=== PATIENT | female | born 2000 | race Caucasian/White ===

== ENCOUNTER 2023-03-07 09:47 | Observation (INO) ==
[2023-03-07] MEDS ORDERED: IBUPROFEN 600 MG TAB PO STA (10:46)
[2023-03-07] MEDS ORDERED: ACETAMINOPHEN 500 MG TAB PO STA (10:46)
--- NOTE | 2023-03-07 10:46 | Emergency Department Note ---
History of Present Illness General Chief complaint: Illness Stated complaint: FEVER, HEADACHE, FATIGUE, HIVES, ABD PAIN Time Seen by Provider: 03/07/23 10:06 History of Present Illness Maximum Pain Intensity: 3 NAME: CONNOR HILL AGE: 22 SEX: F : 2000 ARRIVES VIA: Walk-In INFORMANT: Patient ED PROVIDER(S): NEDRA Gordillo, Glen Stockton, The patient is a 22-year-old female with a past medical history of left melanoma treated with radiation therapy, who arrives to the emergency department for evaluation of viral symptoms including fever, body aches, diffuse rash since Sunday. She reports she was seen at [facility] and had a flu test and urine test which were both negative, she took an at-home COVID test which she reports was negative. She states last night her fever was as high as 102.5, she has taken Tylenol and Motrin which has helped slightly. She denies a sore throat, however she reports nausea with no vomiting, pain in her lower abdomen, dark urine and slight burning with urination. She recently was diagnosed with a sinus infection and provided amoxicillin which she developed a yeast infection from, and then had to take a round of Diflucan. The patient denies any shortness of breath, chest pain at this time. Home Medications Medication Instructions Recorded Confirmed Type Clara See Rx Instructions .Route .COMPLEX 03/07/23 03/07/23 History albuterol sulfate 90 mcg/actuation 2 puff inhalation Q4H PRN Cough 03/07/23 03/07/23 History aerosol inhaler bromfenac 0.07 % eye drops 1 drp ophthalmic (eye) DAILY 03/07/23 03/07/23 History (Prolensa) norethindrone 1 mg-ethinyl 1 tab PO DAILY 03/07/23 03/07/23 History estradiol 20 mcg (21)-iron 75 mg (7) tablet (Diane Fe 03/10 ()) ondansetron 4 mg disintegrating 4 mg PO UD PRN Other 03/07/23 03/07/23 History tablet Allergies Allergy/AdvReac Type Severity Reaction Status Date / Time No Known Allergies Allergy Unverified 03/07/23 13:22 Past Med/Surg History Medical History (Updated 03/07/23 @ 20:44 by NEDRA Cisneros) Febrile illness 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 Surgical History (Updated 03/07/23 @ 17:15 by Gabe Vo MD) History of left cataract surgery Social History Smoking Status: Never smoker Feels Safe at Home: Yes Physical Exam Vital Signs Vital Signs - 24 hr 03/07/23 10:04 03/07/23 11:49 03/07/23 13:00 Temperature 36.4 C L 36.4 C L 36.8 C Temperature Source Temporal Artery Scan Oral Oral Pulse Rate 122 H Pulse Rate [Right Finger] 88 88 Pulse Rhythm [Right Finger] Regular Regular Pulse Strength [Right Finger] Normal Normal Respiratory Rate 19 19 19 Respiratory Effort / Characteristics Non-Labored Spontaneous Non-Labored Spontaneous Non-Labored Spontaneous Respiratory Depth Normal Normal Normal Respiratory Pattern Blood Pressure 107/74 Blood Pressure [Right Arm] 124/75 115/85 Blood Pressure Mean 85 Blood Pressure Mean [Right Arm] 91 95 Blood Pressure Position [Right Arm] Semi-fowlers Semi-fowlers Pulse Oximetry 100 100 100 Oxygen Delivery Method Room Air Room Air Room Air Sepsis Recent Fever Within 48 Hours Yes Sepsis New/Unexplained Change in Mental Status No Sepsis Action Taken by Nursing No Action Required 03/07/23 15:24 03/07/23 17:13 Temperature Temperature Source Pulse Rate Pulse Rate [Right Finger] 104 H 104 H Pulse Rhythm [Right Finger] Pulse Strength [Right Finger] Respiratory Rate 16 18 Respiratory Effort / Characteristics Non-Labored Spontaneous Respiratory Depth Normal Respiratory Pattern Regular Blood Pressure Blood Pressure [Right Arm] 105/85 93/76 L Blood Pressure Mean Blood Pressure Mean [Right Arm] 91 81 Blood Pressure Position [Right Arm] Semi-fowlers Semi-fowlers Pulse Oximetry 98 98 Oxygen Delivery Method Room Air Room Air Sepsis Recent Fever Within 48 Hours Sepsis New/Unexplained Change in Mental Status Sepsis Action Taken by Nursing VITALS: Vitals are noted on the nurse's note and reviewed by myself. Vital signs stable. GENERAL: 22-year-old female in no acute distress, nondiaphoretic, well-developed well-nourished. SKIN: Diffuse maculopapular rash covering the trunk, orthopedic surgeon in appearance on extremities, with some extending to neck and around hairline. HEAD: Normocephalic atraumatic. EARS: External auditory canals clear, tympanic membranes pearly strange without erythema or effusion bilaterally. MOUTH: Mucous membranes moist. Tonsils are not enlarged. Pharynx without erythema or exudate. Uvula midline. Airway patent. Tongue does not deviate. NECK: Supple without nuchal rigidity. Slight left cervical lymphadenopathy. No thyromegaly. Cervical spine is nontender. No JVD. HEART: Sinus tachycardia without murmurs gallops or rubs. LUNGS: Clear to auscultation bilaterally without wheezes, rales or rhonchi. No dullness to percussion. No retractions or accessory muscle use. ABDOMEN: Positive bowel sounds x 4. Normal tympanic percussion. Soft, nontender, without masses or organomegaly. Eddy sign negative. No guarding or rebound tenderness. MUSCULOSKELETAL: No muscle atrophy, erythema, or edema noted. Full range of motion without joint tenderness in all extremities. No tenderness to palpation. Normal gait. Strength 5/5 throughout. NEURO: Patient was alert and oriented to person place and time. Normal sensation to light and sharp touch. Deep tendon reflexes 2+ throughout. No focal neurological deficits. Course Administered Medications Diphenhydramine HCl (Diphenhydramine Capsule 25 Mg Cap) 25 mg PO Q6H PRN PRN Reason: Itching Stop: 04/06/23 19:33 Last Admin: 03/07/23 19:38 Dose: 25 mg Documented By: TRAN Discontinued Medications Acetaminophen (Acetaminophen 500 Mg Tab) 1,000 mg PO NOW STA Stop: 03/07/23 10:47 Last Admin: 03/07/23 11:23 Dose: 1,000 mg Documented By: JENNIFER Sodium Chloride (Nss) 1,000 mls @ 999 mls/hr IV .Q1H1M VIOLA Stop: 03/07/23 13:00 Last Infusion: 03/07/23 13:28 Dose: Infused Documented By: Admin: 03/07/23 12:27 Dose: 999 mls/hr Documented By: Infusion: 03/07/23 12:24 Dose: Infused Documented By: Admin: 03/07/23 11:23 Dose: 999 mls/hr Documented By: JENNIFER Sodium Chloride (Nss) 1,000 mls @ 999 mls/hr IV .Q1H1M ONE Stop: 03/07/23 16:43 Last Infusion: 03/07/23 17:08 Dose: Infused Documented By: Admin: 03/07/23 15:58 Dose: 999 mls/hr Documented By: TRAN Lactated Ringer's (Lr) 500 mls @ 999 mls/hr IV .Q31M ONE Stop: 03/07/23 17:54 Last Infusion: 03/07/23 18:22 Dose: Infused Documented By: Admin: 03/07/23 17:50 Dose: 999 mls/hr Documented By: TRAN Ibuprofen (Ibuprofen 600 Mg Tab) 600 mg PO NOW STA Stop: 03/07/23 10:47 Last Admin: 03/07/23 11:23 Dose: 600 mg Documented By: JENNIFER Medical Decision Making Differential Diagnosis Viral syndrome, strep pharyngitis, tonsillitis, mononucleosis, retropharyngeal abscess, peritonsillar abscess, otitis media, sinusitis, bronchitis, pneumonia, as well as other pathologies. Medical Records Attestation: I reviewed the patient's medical records. Home Medications Current Medication List: was personally reviewed by me Laboratory Data Attestation: I reviewed the patient's lab results. Leukopenia 3.84, thrombocytopenia 77, transaminitis AST 94, ALT 89, alk phos 143, total bili 1.5. Viral panel negative. Urine 3+ ketones, negative for infection. Monospot negative, Lyme's negative, anaplasmosis and babesiosis smear negative. Group A strep negative. 03/07/23 11:19 03/07/23 11:19 Lab Results 03/07/23 03/07/23 03/07/23 Range/Units 10:11 11:02 11:19 WBC 3.84 L (4.8-10.8) K/ul RBC 4.50 (4.20-5.40) M/uL Hgb 13.9 (12.0-16.0) g/dl Hct 39.1 (37.0-47.0) % MCV 86.9 (80.0-100.0) fL MCH 30.9 (25.0-34.0) pg MCHC 35.5 (32.0-36.0) g/dL RDW Std Deviation 38.1 (36.4-46.3) fL RDW Coeff of Mirella 11.9 (11.5-14.5) % Plt Count 77 L (130-400) K/uL MPV 12.3 (9.4-12.4) fL Immature Gran % (Auto) 0.3 % Neut % (Auto) 71.9 % Lymph % (Auto) 22.1 % [place] % (Auto) 4.9 % Eos % (Auto) 0.3 % Baso % (Auto) 0.5 % Neut # (Auto) 2.76 (1.40-6.50) K/uL Lymph # (Auto) 0.85 L (1.20-3.40) K/uL [place] # (Auto) 0.19 (0.11-0.59) K/uL Eos # (Auto) 0.01 (0.00-0.50) K/uL Baso # (Auto) 0.02 (0.00-0.20) K/uL Immature Gran # (Auto) 0.01 (0.01-0.20) K/uL Platelet Estimate Decreased L (Normal) Sodium 133 L (136-145) mmol/L Potassium 3.9 (3.5-5.1) mmol/L Chloride 98 (98-107) mmol/L Carbon Dioxide 25 (21-32) mmol/L Anion Gap 10 (3-11) BUN 7 (6-23) mg/dl Creatinine 0.73 (0.6-1.2) mg/dl Est Cr Clr Drug Dosing 112.0 ml/min Est GFR ( Amer) 135.5 ml/min Est GFR (Non-Af Amer) 116.9 ml/min BUN/Creatinine Ratio 9.6 L (10-20) Glucose 63 L (70-99(Fasting)) mg/dl Calcium 9.2 (8.6-10.3) mg/dl Total Bilirubin 1.5 H (0.2-1.0) mg/dl AST 94 H (13-39) U/L ALT 89 H (7-52) U/L Alkaline Phosphatase 143 H (34-104) U/L Total Protein 7.4 (6.0-8.3) gm/dl Albumin 4.2 (3.4-5.0) gm/dl Globulin 3.2 (2.5-4.0) gm/dl Albumin/Globulin Ratio 1.3 (0.9-2) Urine Color Urine Appearance (Clear) Urine pH (4.5-7.5) Ur Specific [place] (1.000-1.030) Urine Protein (Negative) Urine Glucose (UA) (Negative) Urine Ketones (Negative) Urine Blood (Negative) Urine Nitrite (Negative) Urine Bilirubin (Negative) Urine Urobilinogen (Negative) Ur Leukocyte Esterase (Negative) Nasal Influ A H1 2008 PCR Cancelled Adenovirus (PCR) Not Detected Cancelled (NotDetected) Anaplasma Smear See Comment Babesia Smear See Comment B. pertussis DNA (PCR) Not Detected Cancelled (NotDetected) B.parapertussis DNA PCR Not Detected Cancelled (NotDetected) Lyme Disease IgG Ab Lyme Disease IgM Ab C. pneumoniae DNA (PCR) Not Detected Cancelled (NotDetected) Coronavirus OC43 (PCR) Not Detected Cancelled (NotDetected) Coronavirus HKU1 (PCR) Not Detected Cancelled (NotDetected) Coronavirus 229E (PCR) Not Detected Cancelled (NotDetected) SARS-CoV-2 (PCR) Not Detected Cancelled (NotDetected) Coronavirus NL63 (PCR) Not Detected Cancelled (NotDetected) Monoscreen Human Metapneumovir PCR Not Detected Cancelled (NotDetected) Influenza A (H1) PCR Cancelled Influenza A (H3) PCR Cancelled Influenza Type A (PCR) Not Detected Cancelled (NotDetected) Influenza A Untype (PCR) Cancelled Influenza Type B (PCR) Not Detected Cancelled (NotDetected) M. pneumoniae (PCR) Not Detected Cancelled (NotDetected) Parainfluenza 1 (PCR) Not Detected Cancelled (NotDetected) Parainfluenza 2 (PCR) Not Detected Cancelled (NotDetected) Parainfluenza 3 (PCR) Not Detected Cancelled (NotDetected) Parainfluenza 4 (PCR) Not Detected Cancelled (NotDetected) RSV (PCR) Not Detected Cancelled (NotDetected) Entero/Rhino (PCR) Not Detected Cancelled (NotDetected) Group A Strep (PCR) NOT DETECTED (NotDetected) 01/17/24 01/17/24 01/17/24 Range/Units 11:41 13:49 14:40 WBC (4.8-10.8) K/ul RBC (4.20-5.40) M/uL Hgb (12.0-16.0) g/dl Hct (37.0-47.0) % MCV (80.0-100.0) fL MCH (25.0-34.0) pg MCHC (32.0-36.0) g/dL RDW Std Deviation (36.4-46.3) fL RDW Coeff of Mirella (11.5-14.5) % Plt Count (130-400) K/uL MPV (9.4-12.4) fL Immature Gran % (Auto) % Neut % (Auto) % Lymph % (Auto) % [place] % (Auto) % Eos % (Auto) % Baso % (Auto) % Neut # (Auto) (1.40-6.50) K/uL Lymph # (Auto) (1.20-3.40) K/uL [place] # (Auto) (0.11-0.59) K/uL Eos # (Auto) (0.00-0.50) K/uL Baso # (Auto) (0.00-0.20) K/uL Immature Gran # (Auto) (0.01-0.20) K/uL Platelet Estimate (Normal) Sodium (136-145) mmol/L Potassium (3.5-5.1) mmol/L Chloride (98-107) mmol/L Carbon Dioxide (21-32) mmol/L Anion Gap (3-11) BUN (6-23) mg/dl Creatinine (0.6-1.2) mg/dl Est Cr Clr Drug Dosing ml/min Est GFR ( Amer) ml/min Est GFR (Non-Af Amer) ml/min BUN/Creatinine Ratio (10-20) Glucose (70-99(Fasting)) mg/dl Calcium (8.6-10.3) mg/dl Total Bilirubin (0.2-1.0) mg/dl AST (13-39) U/L ALT (7-52) U/L Alkaline Phosphatase (34-104) U/L Total Protein (6.0-8.3) gm/dl Albumin (3.4-5.0) gm/dl Globulin (2.5-4.0) gm/dl Albumin/Globulin Ratio (0.9-2) Urine Color Yellow Urine Appearance Clear (Clear) Urine pH 6.0 (4.5-7.5) Ur Specific [place] 1.005 (1.000-1.030) Urine Protein Negative (Negative) Urine Glucose (UA) Negative (Negative) Urine Ketones 3+ H (Negative) Urine Blood Negative (Negative) Urine Nitrite Negative (Negative) Urine Bilirubin Negative (Negative) Urine Urobilinogen Negative (Negative) Ur Leukocyte Esterase Negative (Negative) Nasal Influ A H1 2009 PCR Adenovirus (PCR) (NotDetected) Anaplasma Smear Babesia Smear B. pertussis DNA (PCR) (NotDetected) B.parapertussis DNA PCR (NotDetected) Lyme Disease IgG Ab Cancelled Negative Lyme Disease IgM Ab Cancelled Negative C. pneumoniae DNA (PCR) (NotDetected) Coronavirus OC43 (PCR) (NotDetected) Coronavirus HKU1 (PCR) (NotDetected) Coronavirus 229E (PCR) (NotDetected) SARS-CoV-2 (PCR) (NotDetected) Coronavirus NL63 (PCR) (NotDetected) Monoscreen Cancelled Negative Human Metapneumovir PCR (NotDetected) Influenza A (H1) PCR Influenza A (H3) PCR Influenza Type A (PCR) (NotDetected) Influenza A Untype (PCR) Influenza Type B (PCR) (NotDetected) M. pneumoniae (PCR) (NotDetected) Parainfluenza 1 (PCR) (NotDetected) Parainfluenza 2 (PCR) (NotDetected) Parainfluenza 3 (PCR) (NotDetected) Parainfluenza 4 (PCR) (NotDetected) RSV (PCR) (NotDetected) Entero/Rhino (PCR) (NotDetected) Group A Strep (PCR) (NotDetected) Imaging Data Radiologist's Impression: Liver Ultrasound 03/07/23 15:34 ABDOMINAL ULTRASOUND, RIGHT UPPER QUADRANT HISTORY: Acutely elevated LFTs Transaminitis. COMPARISON: None. FINDINGS: Pancreas: The pancreas demonstrates a normal echotexture. Liver: 17.6 cm in length and is unremarkable. No mass is identified. Gallbladder: No gallbladder wall thickening. No gallstones. CBD: 0.2 cm. Right kidney: No hydronephrosis. IMPRESSION: No significant abnormality identified within the right upper quadrant. ACT 112: Negative or not required by law. Electronically signed by: Waylon Resendez M.D. 03/07/2023 5:12 PM Blood Pressure Blood Pressure Findings: Normal blood pressure MDM Narrative The patient is a 20-year-old female who arrives to the emergency department for evaluation of a viral illness. Upon examination the patient has a diffuse blanching maculopapular rash extending from her trunk to her neck with some rash noted on the extremities and around the hairline. The patient does report a previous diagnosis of acute sinusitis with treatment of amoxicillin. She states intermittent fevers since Sunday, with some relief from Tylenol Motrin. She does have a history of left eye malignant melanoma with radiation treatment. The patient made very clear she did not want any type of radiation exposure due to her serial imaging which is ordered from her oncologist. She is having no respiratory symptoms, therefore no chest x-ray is indicated. A saline lock was initiated, CBC, CMP, beta strep swab, bio fire, urinalysis were obtained for evaluation. Patient was tachycardic upon arrival, she was provided with 2 L of normal saline, as well as p.o. Tylenol and Motrin for body aches. CBC shows leukopenia, as well as thrombocytopenia. CMP shows transaminitis. Infection test shows no present flexion, however 3+ ketones present. Bio fire is negative for viral illness. At this time a Monospot was ordered which resulted as negative, however after speaking with my attending, Dr. Stockton, you believe this is a false negative. Dr. Stockton recommended adding tickborne illness testing as well as EBV panel, and hep C testing. All initial tickborne illness testing was negative. An ultrasound was ordered of the right upper quadrant to rule out liver and gallbladder abnormality. At this time I spoke with the patient regarding admission for further testing and fluid resuscitation, she agreed with my plan of care. Myself and Dr. Stockton spoke with the admitting provider, who agreed to keep the patient based on her transaminitis, thrombocytopenia, leukopenia and febrile illness. Dr. Vo will take over care of the patient at this time. Impression & Plan Febrile illness, Transaminitis, Thrombocytopenia Discharge Plan Visit Data Chief Complaint: Illness Stated Complaint: FEVER, HEADACHE, FATIGUE, HIVES, ABD PAIN ED Provider: Glen Stockton ED Midlevel Provider: Anu Olivera Discharge Problem: Febrile illness, Transaminitis, Thrombocytopenia Patient Disposition: Admitted As Inpatient Discharge Instructions Interventions: ED Discharge Assessment Last Done: 03/07/23 19:47
[2023-03-07 11:20] LABS: Adenovirus PCR Not Detected (NotDetected); Bordetella parapertussis PCR Not Detected (NotDetected); Bordetella pertussis PCR Not Detected (NotDetected); Chlamydia pneumoniae PCR Not Detected (NotDetected); Coronavirus 229E PCR Not Detected (NotDetected); Coronavirus CoV-2 (COVID19)PCR Not Detected (NotDetected); Coronavirus HKU1 PCR Not Detected (NotDetected); Coronavirus NL63 PCR Not Detected (NotDetected); Coronavirus OC43PCR Not Detected (NotDetected); Human Metapneumovirus PCR Not Detected (NotDetected); Influenza A PCR Not Detected (NotDetected); Influenza B PCR Not Detected (NotDetected); Mycoplasma pneumoniae PCR Not Detected (NotDetected); Parainfluenza Virus 1 PCR Not Detected (NotDetected); Parainfluenza Virus 2 PCR Not Detected (NotDetected); Parainfluenza Virus 3 PCR Not Detected (NotDetected); Parainfluenza Virus 4 PCR Not Detected (NotDetected); Respiratory Syncytial VirusPCR Not Detected (NotDetected); Rhinovirus/Enterovirus PCR Not Detected (NotDetected)
[2023-03-07] MEDS: SODIUM CHLORIDE 0.9% 1,000 ML IV SCH ×2 (11:23→12:27)
[2023-03-07 12:06] LABS: Appearance Urine Clear (Clear); Bilirubin Urine Negative (Negative); Blood Urine Negative (Negative); Color Urine Yellow; Glucose Urine UA Negative (Negative); Ketones Urine 3+ (Negative); Leukocyte Esterase Urine Negative (Negative); Nitrite Urine Negative (Negative); Protein Urine Negative (Negative); Specific Gravity Urine 1.005 (1.000-1.030); Urobilinogen Urine Negative (Negative)
[2023-03-07 13:24] LABS: Albumin Globulin Ratio 1.3 (0.9-2); Albumin Level 4.2 gm/dl (3.4-5.0); BUN Creatinine Ratio 9.6 (10-20); Bilirubin,Total 1.5 mg/dl (0.2-1.0); Calcium 9.2 mg/dl (8.6-10.3); Est GFR (African American) 135.5 ml/min; Est GFR (Non-African American) 116.9 ml/min; Globulin 3.2 gm/dl (2.5-4.0); Potassium 3.9 mmol/L (3.5-5.1); Total Protein 7.4 gm/dl (6.0-8.3)
[2023-03-07 13:33] LABS: Hematocrit (blood only) 39.1 % (37.0-47.0); Hemoglobin 13.9 g/dl (12.0-16.0); Mean Corpuscular Hemoglobin 30.9 pg (25.0-34.0); Mean Corpuscular Hgb Conc 35.5 g/dL (32.0-36.0); Mean Corpuscular Volume 86.9 fL (80.0-100.0); RDW Coefficient of Variation 11.9 % (11.5-14.5); RDW Standard Deviation 38.1 fL (36.4-46.3); White Blood Count 3.84 K/ul (4.8-10.8)
[2023-03-07 13:39] LABS: Mean Platelet Volume 12.3 fL (9.4-12.4); Platelet Count 77 K/uL (130-400)
[2023-03-07 13:46] LABS: Basophils # (auto) 0.02 K/uL (0.00-0.20); Basophils % (auto) 0.5 %; Eosinophils # (auto) 0.01 K/uL (0.00-0.50); Eosinophils % (auto) 0.3 %; Immature Granulocytes # (auto) 0.01 K/uL (0.01-0.20); Immature Granulocytes % (auto) 0.3 %; Lymphocytes # (auto) 0.85 K/uL (1.20-3.40); Lymphocytes % (auto) 22.1 %; Monocytes # (auto) 0.19 K/uL (0.11-0.59); Monocytes % (auto) 4.9 %; Neutrophils # (auto) 2.76 K/uL (1.40-6.50); Neutrophils % (auto) 71.9 %; Platelet Estimate Decreased (Normal)
--- NOTE | 2023-03-07 15:27 | Emergency Department Note ---
ED Visit Note Physician Evaluation Note: Patient was seen in conjunction with the midlevel provider. Please see the midlevel provider note for full details of the patient's visit. I have personally evaluated and examined this patient. Patient presented to the ED with intermittent fevers over the past several days, she states she is also had a mild headache and night sweats. Patient developed a fine macular erythematous rash over her chest. On arrival here to the ED the patient is afebrile, she is hemodynamically stable. Workup was initiated and shows a negative viral panel, negative strep testing, CBC shows a mild leukopenia 3.84, hemoglobin is normal, platelet count is reduced at 77, CMP shows evidence of a mild transaminitis with AST of 94, ALT of 89, alk phos of 143, total bilirubin 1.5. Patient does not have any right upper quadrant tenderness on my exam, urinalysis shows 3+ ketones but no evidence of infection. Given the transaminitis with unexplained intermittent fevers recently, Lyme testing and mononucleosis testing were added as well as Anaplasma testing. Both are negative. Will send confirmatory EBV testing. Will add hepatitis panel. Patient will be admitted to the hospitalist service for further management and workup given nonspecific transaminitis at this point. Case was discussed by myself with Dr. Vo. Patient was placed for admission in stable condition. I agree with assessment and plan of DANTE Gordillo DO .
[2023-03-07 15:28] LABS: Monotest Negative (Negative)
[2023-03-07] MEDS ORDERED: SODIUM CHLORIDE 0.9% 1,000 ML IV ONE (15:43)
[2023-03-07 15:54] LABS: Lyme Ab IgG w/WB Rflx Negative (Negative); Lyme Ab IgM w/WB Rflx Negative (Negative)
--- NOTE | 2023-03-07 16:21 | History & Physical Report ---
Date of Service March 07, 2023 Assessment & Plan (1) Febrile illness: Plan: - Fever, chills, sweats, poor p.o. intake Bio fire negative - Macular, blanching, non-petechial rash of chest, suspect viral exathem. Monospot is negative, EBV serology pending. Does have 1 posterior left-sided cervical lymph node palpable. Symptoms have only been present for 3 days, Monospot with low sensitivity. Peripheral smear ordered both for evaluation of atypical lymphocytes/margination and for new Group A strep negative Acute hepatitis panel pending Lyme negative, anaplasmosis smear negative, being anaplasmosis/babesiosis smear negative, Babesia/anaplasmosis PCR send out pending. With profile and clinical and is consistent with anaplasmosis, if she clinically deteriorates prior to PCR returning reasonable to start empiric doxycycline 100 mg Clinically volume contracted on admission with poor p.o. intake, supplemental fluids ordered. 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 ?uveal melanoma. - s/p radiation therapy at age 13 - History of radiation plaque therapy and laser surgery. [place] [facility]. Also sees Onc [facility] in [place]. Follows with Dr. Davis [facility] [place]. [facility] performed her cataract surgery. - Eylea injections Q4-6w, last injection was last week for edema - Hx of cataract surgery ~1 year ago due to radiation damage No prior history of liver disease. Patient reports she does rotate through MRI screening chest liver and brain which has been performed as an outpatient, also gets periodic ultrasounds of the liver every other year and has had no abnormalities to her knowledge. Mother will try to bring in records of recent tests, in addition to a fax number for formal records request - L pupil is normally much larger than left. 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 No acute change. No new focal neuro deficits. - Liver ultrasound without any acute findings. No evidence of metastasis. Patient does have routine MRI screening, metastatic cause of her symptoms extremely unlikely. Will confirm screening results with outpatient, no additional imaging at time of admit (3) Neutropenia: Plan: Bicytopenia Leukopenic with normal neutrophil count, lymphocyte count 0.85 Platelet count 77 K, no history of thrombocytopenia Suspect this most likely viral or tick mediated. Eval and tx as noted Trended, no acute bleeding (4) Anisocoria: (5) Transaminitis: Plan DVT prophylaxis: Low risk, ambulate/SCDs. Pharmacal prophylaxis deferred due to thrombocytopenia CODE STATUS: Full code Diet: Regular Disposition: Medical/surgical History of Present Illness Primary Care Provider: [facility] Kim is a 22yo F with a history of Sunday morning had abrupt onset of fevers and fatigue, sleeping all day. [place] feverish all day Sunday/Sunday. Sunday she went to [email or web address] who thought she was very dehydrated, gave her gatorade and water and discharged her to routine followup. UA at that time was negative for UTI. Flu test was negative. COVID test negative. Last night 'was the worst night, felt absoluetely terrible.' Thermometer 102.5*F and 'felt advil'. Intermittent headache which improved/resolved when advil/tylenol used together. Last night continued to have intermittent fevers all night, and was waking up in a pool of sweat multiple times. [place] much worse than when she had the flu in the past. THis morning had a rash on her chest and came to the ER for evaluation. Advil + Tylenol helps, but 'still don't feel good even with this.' No cough or shortness of breath. NO conguestion. Roomates are sick with URI, but they have cough/congestion. NO photosenstivity of phonosensitivity. No neck pain. No vomiting. +nausea and poor appetite. Took zofran 2x due to nausea which helped a little. No diarrhea. No BM since Sunday. Eating very little. Has bloating in her lower abdomen which is 'uncomfortable bu tnot painful.' After eating oatmeal had gradual onset of discomfort in her low-mid abdomen with a full feel but 'not pain'. Last BM was 'little greer', brown. No blood, no melena. Urine has been very dark. Home OTC Use: Advil 400mg PRN --> 500mg tylenol helped. Takes meds as little as possible, redosing/rotating every 4-6 hours. L eye history of melanoma - History of radiation plaque therapy and laser surgery. [place]. Also sees [facility]c [facility] in [place]. Follows with Dr. Davis [facility]. [facility] performed her cataract surgery. - Eyelia injections Q4-6w, last injection was last week for edema - Hx of cataract surgery ~1 year ago due to radiation damage - Regular MRI chest, liver, brain and rotates with US QoY. Records pending from pts mother. - L pupil is normally much larger than left. 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 No new change in vision. No new focal neuro deficits. Medical History: Reviewed Medications: Reviewed. Prolensa drops. Eylea injections. Diane Fe control. Albuterol PRN, zofran PRN/ Surgical History: Reviewed Family history: Reviewed Allergies: Reviewed Social History: No tobacco use. Etoh socially, a little more last year due to coming back first week. Usually drinks socially 3 drinks in a night, ~3 nights per week. Code Status: Full Code Allergies Allergy/AdvReac Type Severity Reaction Status Date / Time No Known Allergies Allergy Unverified 03/07/23 13:22 Home Medications Medication Instructions Recorded Confirmed Type Eylea See Rx Instructions .Route .COMPLEX 03/07/23 03/07/23 History albuterol sulfate 90 mcg/actuation 2 puff inhalation Q4H PRN Cough 03/07/23 03/07/23 History aerosol inhaler bromfenac 0.07 % eye drops 1 drp ophthalmic (eye) DAILY 03/07/23 03/07/23 History (Prolensa) norethindrone 1 mg-ethinyl 1 tab PO DAILY 03/07/23 03/07/23 History estradiol 20 mcg (21)-iron 75 mg (7) tablet (Diane Fe 03/10 (28)) ondansetron 4 mg disintegrating 4 mg PO UD PRN Other 03/07/23 03/07/23 History tablet Past Med/Surg History Medical History (Updated 03/07/23 @ 17:15 by Gabe Vo MD) Febrile illness 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 Surgical History (Updated 03/07/23 @ 17:15 by Gabe Vo MD) History of left cataract surgery Social History Smoking Status: Never smoker Feels Safe at Home: Yes Physical Exam Physical Exam: General: A&Ox3. NAD. Cooperative. Appears fatigued, but nontoxic. Macular, blanching, non-petechial, nonpruritic, nontender rash of the chest present. HEENT: Atraumatic, normocephalic. L eye anisicoria at baseline. Pupils reactive to light bilaterally, no relative afferent defect. EoM intact without nystagmus. Pulm: CTAB A&P. -wheezes, -rales, -rhonchi. Symmetrical chest rise. No increased work of breathing. No respiratory distress. Cardiac: RRR, -mrg. Radial pulses intact and symmetrical. Abdominal: Nontender, nondistended, soft. BS present. Ext: Warm, dry Results & Data Results & Data Vital Signs (Past 12 Hours) Vital Signs Temp Pulse Pulse Resp BP BP Pulse Ox 03/07/23 15:24 104 H 16 105/85 98 03/07/23 13:00 36.8 C 88 19 115/85 100 03/07/23 11:49 36.4 C L 88 19 124/75 100 03/07/23 10:04 36.4 C L 122 H 19 107/74 100 O2 Del Method 03/07/23 15:24 Room Air 03/07/23 13:00 Room Air 03/07/23 11:49 Room Air 03/07/23 10:04 Room Air PG Care Time/CCT Total # of Minutes Spent Total Time Spent with Patient: Total time spent is greater than 50% in coordination of care (as documented) at patient's floor/unit and/or counseling patient: Coding Level of Care Code 73297 INT INP/OBS CARE 3/75MIN Diagnoses Febrile illness R50.9 Anterior uveal melanoma of left eye C69.42 Neutropenia D70.9 Anisocoria H57.02 Transaminitis R74.01
--- NOTE | 2023-03-07 17:13 | Ultrasound Report ---
ABDOMINAL ULTRASOUND, RIGHT UPPER QUADRANT HISTORY: Acutely elevated LFTs Transaminitis. COMPARISON: None. FINDINGS: Pancreas: The pancreas demonstrates a normal echotexture. Liver: 17.6 cm in length and is unremarkable. No mass is identified. Gallbladder: No gallbladder wall thickening. No gallstones. CBD: 0.2 cm. Right kidney: No hydronephrosis. IMPRESSION: No significant abnormality identified within the right upper quadrant. ACT 112: Negative or not required by law. Electronically signed by: Waylon Resendez M.D. 03/07/2023 5:12 PM
[2023-03-07] MEDS ORDERED: IBUPROFEN 200 MG TAB PO PRN (17:24)
[2023-03-07] MEDS ORDERED: LACTATED RINGER'S 500 ML IV ONE (17:24)
[2023-03-07] MEDS ORDERED: diphenhydrAMINE Capsule 25 MG CAP PO PRN (19:34)
[2023-03-07] MEDS ORDERED: POLYETHYLENE (MIRALAX) 17 GM PACK PO PRN (20:27)
[2023-03-07] MEDS ORDERED: ALBUTEROL HFA 8 GM INHALER INH PRN (20:27)
[2023-03-08] MEDS: ACETAMINOPHEN 500 MG TAB PO PRN ×3 (05:36→19:15)
[2023-03-08 06:37] LABS: Hematocrit (blood only) 34.5 % (37.0-47.0); Hemoglobin 12.1 g/dl (12.0-16.0); Mean Corpuscular Hgb Conc 35.1 g/dL (32.0-36.0); Mean Corpuscular Volume 88.5 fL (80.0-100.0); Mean Platelet Volume 11.7 fL (9.4-12.4); Platelet Count 79 K/uL (130-400); RDW Coefficient of Variation 11.8 % (11.5-14.5); RDW Standard Deviation 37.9 fL (36.4-46.3); White Blood Count 3.45 K/ul (4.8-10.8)
[2023-03-08 06:39] LABS: Albumin Globulin Ratio 1.6 (0.9-2); Albumin Level 3.6 gm/dl (3.4-5.0); BUN Creatinine Ratio 6.6 (10-20); Calcium 7.8 mg/dl (8.6-10.3); Creatinine Clr Calc Pharmacy 136.8 ml/min; Est GFR (African American) 149.1 ml/min; Est GFR (Non-African American) 128.7 ml/min; Globulin 2.3 gm/dl (2.5-4.0); Potassium 3.8 mmol/L (3.5-5.1); Total Protein 5.9 gm/dl (6.0-8.3)
[2023-03-08 06:48] LABS: Basophils # (auto) 0.02 K/uL (0.00-0.20); Basophils % (auto) 0.6 %; Eosinophils # (auto) 0.02 K/uL (0.00-0.50); Eosinophils % (auto) 0.6 %; Immature Granulocytes # (auto) 0.01 K/uL (0.01-0.20); Immature Granulocytes % (auto) 0.3 %; Lymphocytes # (auto) 1.08 K/uL (1.20-3.40); Lymphocytes % (auto) 31.3 %; Monocytes # (auto) 0.19 K/uL (0.11-0.59); Monocytes % (auto) 5.5 %; Neutrophils # (auto) 2.13 K/uL (1.40-6.50); Neutrophils % (auto) 61.7 %
--- NOTE | 2023-03-08 07:00 | Hospitalist Progress Note ---
Date of Service March 08, 2023 Assessment & Plan (1) Thrombocytopenia: (2) Transaminitis: (3) Neutropenia: (4) Febrile illness: Plan Febrile illness/ anaplasmosis? - Fever, chills, sweats, poor p.o. intake - Macular, blanching, non-petechial rash of chest - resolved -Peripheral smear ordered both for evaluation of atypical lymphocytes/margination and for new Babesia/anaplasmosis PCR send out pending. -EBV pending -Will start doxycycline 100 mg po BID -- clinical picture correlate to anaplasmosis Tylenol, ibuprofen every 4 hours PRN Anterior uveal melanoma of left eye: - L Eye Melanoma, hx radiation and secondary macular degeneration - s/p radiation therapy at age 13 - Eylea injections Q4-6w, last injection was last week for edema - Hx of cataract surgery ~1 year ago due to radiation damage No prior history of liver disease. - Patient reports she does rotate through MRI screening chest liver and brain - Liver ultrasound without any acute findings. Leukopenia Bicytopenia Leukopenic with normal neutrophil count, low lymphocyte Platelet count 77 K, no history of thrombocytopenia Suspect this most likely viral or tick mediated -CBC Transaminitis: AST: 67 ALT: 70 trending down Liver panel am Acute hepatitis panel pending Plan DVT prophylaxis: Low risk, ambulate/SCDs. Pharmacal prophylaxis deferred due to thrombocytopenia CODE STATUS: Full code Diet: Regular Disposition: Medical/surgical Admission and Anticipated Discharge Date Admission Date: March 07, 2023 Supervising Physician Co-Signing Physician Notes I personally examined the patient and verified all solomon points of history and exam, discussed case, and agree with decision making with Dr Abiodun Luis Still feeling more or less the same as before. May be slightly betterbut mostly related to being hydrated. Vitals noted, in general she is awake and alert pleasant no distress. HEENT normocephalic atraumatic mucous membranes moist. Breathing unlabored no accessory muscle use good effort. Skin without rashes pallor or icterus (rash resolved) febrile illnessgiven duration of illness, as well as persistent neutropenia, thrombocytopenia, transaminitisfits the most with anaplasmosisquite endemic in the area, and peripheral smear does have a rather significant false-negative rate. Discussed this versus viral illness at length with patient, but given the supportive care does not seem to have dramatically turned her story for the betterI feel it is a reasonable time to initiate doxycycline. Patient expressed understanding, agrees with proceeding with treatment. Otherwise as above. Subjective Kim is a 22 y/o female with PMH of left eye melanoma treated with She started on Sunday having intermittent fatigue, fever, decrease PO. Admitted here due to febrile illness This morning was evaluated found awake in NAD. She refers slightly improve but still fatigue and headache. Refers some lower abdominal pain and nausea. Rash has improved Denied SOB, fever, diarrhea, chest pain or any other symtoms Review of Systems Review of Systems: as per hpi Physical Exam Constitutional: WD/WN, vitals as above no acute distress Neck: negative Brudzinski's sign and negative Kernig's sign Respiratory: normal respiratory effort, lungs clear to auscultation Cardiovascular: RRR, no murmur, no edema Skin: No rashes Lymphatic: + cervical lymphadenopathy posterior left side cervical lymph Results & Data Results & Data Vital Signs (Past 12 Hours) Vital Signs Temp Pulse Pulse Resp BP Pulse Ox O2 Del Method 03/07/23 20:30 36.7 C 88 16 113/72 99 Room Air 03/07/23 19:00 94 H 18 115/73 98 Room Air Resident Activity Tracking Resident Involvement: Resident Care Provided Care Provided: Adult Hospital Medicine
[2023-03-08] MEDS ORDERED: SIMETHICONE 80 MG CHEW PO ONE (08:28)
[2023-03-08] MEDS ORDERED: POLYETHYLENE (MIRALAX) 17 GM PACK PO PRN (08:28)
[2023-03-08] MEDS ORDERED: LACTATED RINGER'S 1,000 ML IV SCH (08:30)
[2023-03-08] MEDS: ONDANSETRON INJ 2 MG/ML 2 ML VIAL IV PRN ×2 (09:08→15:33)
[2023-03-08] MEDS: DOXYCYCLINE HYCLATE 100 MG CAP PO SCH ×2 (12:18→20:43)
[2023-03-08] MEDS ORDERED: PROCHLORPERAZINE MALEATE 5 MG TAB PO ONE (17:02)
--- NOTE | 2023-03-08 17:48 | Billing Data ---
Date of Service March 08, 2023 Coding Level of Care Code 30783 SUB INP/OBS CARE MIN
--- NOTE | 2023-03-08 17:49 | Billing Data ---
Date of Service March 08, 2023 Coding Level of Care Code 11599 SUB INP/OBS CARE MIN
[2023-03-08] MEDS ORDERED: SIMETHICONE 80 MG CHEW PO PRN (18:55)
[2023-03-08] MEDS: POLYETHYLENE (MIRALAX) 17 GM PACK PO SCH (20:43)
[2023-03-09 06:59] LABS: Alanine Aminotransferase 74 U/L (7-52); Albumin Globulin Ratio 1.4 (0.9-2); Albumin Level 3.6 gm/dl (3.4-5.0); Alkaline Phosphatase 94 U/L (34-104); Anion Gap 6 (3-11); Aspartate Aminotransferase 56 U/L (13-39); BUN Creatinine Ratio 10.2 (10-20); Bilirubin,Total 0.6 mg/dl (0.2-1.0); Blood Urea Nitrogen 6 mg/dl (6-23); Calcium 8.7 mg/dl (8.6-10.3); Carbon Dioxide 27 mmol/L (21-32); Chloride 106 mmol/L (98-107); Creatinine Clr Calc Pharmacy 141.4 ml/min; Est GFR (African American) > 150.0 ml/min; Est GFR (Non-African American) 130.1 ml/min; Globulin 2.5 gm/dl (2.5-4.0); Glucose 91 mg/dl (70-99(Fasting)); Hematocrit (blood only) 33.3 % (37.0-47.0); Hemoglobin 11.7 g/dl (12.0-16.0); Mean Corpuscular Hemoglobin 30.7 pg (25.0-34.0); Mean Corpuscular Hgb Conc 35.1 g/dL (32.0-36.0); Mean Corpuscular Volume 87.4 fL (80.0-100.0); Mean Platelet Volume 11.5 fL (9.4-12.4); Platelet Count 92 K/uL (130-400); Potassium 3.8 mmol/L (3.5-5.1); RDW Coefficient of Variation 11.9 % (11.5-14.5); RDW Standard Deviation 38.2 fL (36.4-46.3); Red Blood Count 3.81 M/uL (4.20-5.40); Sodium 139 mmol/L (136-145); Total Protein 6.1 gm/dl (6.0-8.3); White Blood Count 5.67 K/ul (4.8-10.8)
[2023-03-09 08:09] LABS: ANC (manual) 2.04 K/uL (1.4-6.5); Lymphocytes # (manual) 2.27 K/uL (1.2-3.4); Lymphocytes % (manual) 40 %; Monocytes # (manual) 0.23 K/uL (0.11-0.59); Monocytes % (manual) 4 %; Neutrophils # (manual) 2.04 K/uL (1.40-6.50); Neutrophils % (manual) 36 %; Reactive Lymphocytes # (manual) 1.13 K/uL; Reactive Lymphocytes % (manual) 20 %
[2023-03-09] MEDS: DOXYCYCLINE HYCLATE 100 MG CAP PO SCH (09:03)
[2023-03-09] MEDS: POLYETHYLENE (MIRALAX) 17 GM PACK PO SCH (09:03)
--- NOTE | 2023-03-09 10:20 | Discharge Summary ---
Date of Service March 09, 2023 Admission HPI Per Admitting Provider Kim is a 22yo F with a history of Sunday morning had abrupt onset of fevers and fatigue, sleeping all day. [place] feverish all day Sunday/Sunday. Sunday she went to [facility] who thought she was very dehydrated, gave her gatorade and water and discharged her to routine followup. UA at that time was negative for UTI. Flu test was negative. COVID test negative. Last night 'was the worst night, felt absoluetely terrible.' Thermometer 102.5*F and 'felt advil'. Intermittent headache which improved/resolved when advil/tylenol used together. Last night continued to have intermittent fevers all night, and was waking up in a pool of sweat multiple times. [place] much worse than when she had the flu in the past. THis morning had a rash on her chest and came to the ER for evaluation. Advil + Tylenol helps, but 'still don't feel good even with this.' No cough or shortness of breath. NO conguestion. Roomates are sick with URI, but they have cough/congestion. NO photosenstivity of phonosensitivity. No neck pain. No vomiting. +nausea and poor appetite. Took zofran 2x due to nausea which helped a little. No diarrhea. No BM since Sunday. Eating very little. Has bloating in her lower abdomen which is 'uncomfortable bu tnot painful.' After eating oatmeal had gradual onset of discomfort in her low-mid abdomen with a full feel but 'not pain'. Last BM was 'little greer', brown. No blood, no melena. Urine has been very dark. Home OTC Use: Advil 400mg PRN --> 500mg tylenol helped. Takes meds as little as possible, redosing/rotating every 4-6 hours. L eye history of melanoma - History of radiation plaque therapy and laser surgery. [place]. Also sees [facility] in [place]. Follows with Dr. Davis [facility]. [facility] performed her cataract surgery. - Eyelia injections Q4-6w, last injection was last week for edema - Hx of cataract surgery ~1 year ago due to radiation damage - Regular MRI chest, liver, brain and rotates with US QoY. Records pending from pts mother. - L pupil is normally much larger than left. 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 No new change in vision. No new focal neuro deficits. Medical History: Reviewed Medications: Reviewed. Prolensa drops. Eylea injections. Diane Gallegos control. Albuterol PRN, zofran PRN/ Surgical History: Reviewed Family history: Reviewed Allergies: Reviewed Social History: No tobacco use. Etoh socially, a little more last year due to coming back first week. Usually drinks socially 3 drinks in a night, ~3 nights per week. Code Status: Full Code Admission Exam Per Admitting Provider : General: A&Ox3. NAD. Cooperative. Appears fatigued, but nontoxic. Macular, blanching, non-petechial, nonpruritic, nontender rash of the chest present. HEENT: Atraumatic, normocephalic. L eye anisicoria at baseline. Pupils reactive to light bilaterally, no relative afferent defect. EoM intact without nystagmus. Pulm: CTAB A&P. -wheezes, -rales, -rhonchi. Symmetrical chest rise. No increased work of breathing. No respiratory distress. Cardiac: RRR, -mrg. Radial pulses intact and symmetrical. Abdominal: Nontender, nondistended, soft. BS present. Ext: Warm, dry Principal Diagnosis Febrile illness - anaplasmosis Discharge Exam Constitutional WD/WN, vitals as above no acute distress Neck negative Brudzinski's sign and negative Kernig's sign Respiratory normal respiratory effort, lungs clear to auscultation Cardiovascular RRR, no murmur, no edema Lymphatic + cervical lymphadenopathy Discharge Data Allergies Allergy/AdvReac Type Severity Reaction Status Date / Time No Known Allergies Allergy Unverified 03/07/23 13:22 Consultations 03/07/23 16:34 ED Decision to Admit Stat Ordered Studies 03/07/23 15:34 US liver Stat Hospital Course (1) Thrombocytopenia: (2) Transaminitis: (3) Neutropenia: (4) Febrile illness: Plan Febrile illness/ anaplasmosis - Fever, chills, sweats, poor p.o. intake - Macular, blanching, non-petechial rash of chest - resolved - Babesia/anaplasmosis PCR send out pending- follow outpatient -EBV pending, hepatitis ab pending--- follow outpatient -Will start doxycycline 100 mg po BID -- clinical picture correlate to anaplasmosis. Prescription sent home for 14 days in total. Follow up with PCP Anterior uveal melanoma of left eye: - L Eye Melanoma, hx radiation and secondary macular degeneration - s/p radiation therapy at age 13 - Eylea injections Q4-6w, last injection was last week for edema - Hx of cataract surgery ~1 year ago due to radiation damage No prior history of liver disease. - Patient reports she does rotate through MRI screening chest liver and brain - Liver ultrasound without any acute findings. Leukopenia Bicytopenia Leukopenic with normal neutrophil count, low lymphocyte Platelet count 93 K on discharge Suspect this most likely viral or tick mediated -CBC outpatient Transaminitis: AST: 56 ALT: 74 trending down Liver panel- outpatient Acute hepatitis panel pending- follow oupatient Total Time Total Time Spent Total Time Spent (In Minutes): <30 Discharge Plan Discharge Items Patient Disposition: Home - Self-Care Reason For Visit: FEBRILE ILLNESS, POOR PO INTAKE Discharge Diagnosis: Febrile illness Anaplasmosis Activity: Resume your previous activity Non-emergency contact: Primary Care Provider Call non-emergency contact if: you have any medication questions, your symptoms worsen, your pain is unusual for you and you have a fever Follow-up/Referrals: [facility] [Primary Care Provider] - (PLEASE FOLLOW UP WITH [facility] 7-10 DAYS AFTER DISCHARGE.) Diet: Regular Addtl Attending Provider Instructions: You were admitted due to dehydration and fever illness. We rule out a couple of viral and bacteria possibilities. Your clinical picture go together with anaplasmosis, a tick born disease that causes of low white count cells, low platelets and elevated liver enzyme. The PCR that confirm the diagnosed take about 1 week to get results. So we treat you empirically with Doxycycline 100 mg twice a day. We will sent this to your pharmacy, take this medication for 14 days. We schedule an appointment with Dr. Caldwell at [facility] for March 22, 2023 , arrival time at 9:25 am Pending Studies at Discharge: No Stand-Alone Forms: My [facility] [employer], Smoking Cessation Medications and DC Order Prescriptions: New doxycycline hyclate 100 mg capsule 100 mg PO BID 13 Days Qty: 26 0RF Continued norethindrone-e.estradiol-iron [Diane Fe 03/10 (28)] 1 mg-20 mcg (21)/75 mg (7) tablet 1 tab PO DAILY albuterol sulfate 90 mcg/actuation HFA aerosol inhaler 2 puff INHALATION Q4H PRN (Reason: Cough) ondansetron 4 mg tablet,disintegrating 4 mg PO UD PRN (Reason: Other) Rx Instructions: as directed Prolensa 0.07 % drops 1 drp ophthalmic (eye) DAILY Rx Instructions: left eye Eylea See Rx Instructions .ROUTE .COMPLEX Rx Instructions: eye injection every 4 to 6 weeks Discharge Orders: Discharge Order (Routine); Ordered 03/09/23 Ordered By: Alec Luis Admission Data Admit Date/Time: 03/07/23 17:29 Attending Provider: Soto Quispe Admit Provider: Gabe Vo Primary Care Provider: [facility] Other Providers: Gabe Vo Other Interventions: Discharge Summary Assessment (RN) Last Done: 03/09/23 13:00 Supervising Physician Co-Signing Physician Notes I personally examined the patient and verified all solomon points of history and exam, discussed case, and agree with decision making with Dr Abiodun Luis Overall feeling better. Dark urine persistslater after UA has come back realized it was urobilinogendiscussed with patient. Vitals noted, in general she is awake and alert pleasant no distress. HEENT normocephalic atraumatic mucous membranes moist. Breathing unlabored no accessory muscle use good effort. Skin without rashes pallor or icterus febrile illnessgiven duration of illness, as well as persistent neutropenia, thrombocytopenia, transaminitisfits the most with anaplasmosisquite endemic in the area, and peripheral smear does have a rather significant false-negative rate. Yesterday we discussed this versus viral illness at length with patient, and initiated doxycycline. Today reiterated discussions, she has been doing well and feels up to going home. Discussed that her dark urine was urobilinogen, and given the transaminitis and mild elevation of bilirubin on admission, it seems quite likely that this all relates. Discussed that it may take several days for the dark urine to clear, but part of our follow-up for this would really be following her CBC and CMP to make sure that everything normalizeswhich would be what we would be doing to follow for any persistence of urobilinogen as well. (Also discussed if she continues to have dark urine we would recheck a UA in the office to confirm that is what is causing it, but that this is likely all to be a self resolving issue). Safe/stable for home, finish course of doxycycline, outpatient follow-up next week, next week CBC, CMP to be drawn in the office. Resident Activity Tracking Resident Involvement: Resident Care Provided Care Provided: Adult [facility]
[2023-03-09 11:21] LABS: Appearance Urine Clear (Clear); Bilirubin Urine Negative (Negative); Blood Urine Negative (Negative); Color Urine Yellow; Glucose Urine UA Negative (Negative); Ketones Urine Negative (Negative); Leukocyte Esterase Urine Negative (Negative); Nitrite Urine Negative (Negative); Protein Urine Negative (Negative); Specific Gravity Urine 1.005 (1.000-1.030); Urobilinogen Urine Positive (Negative)
[2023-03-09 11:27] LABS: HBSAG NON-REACTIVE (NON-REACTIVE); Hepatitis A Antibody IgM NON-REACTIVE (NON-REACTIVE); Hepatitis B Core Antibody IgM NON-REACTIVE (NON-REACTIVE)
--- NOTE | 2023-03-09 16:28 | Billing Data ---
Date of Service March 09, 2023 Coding Level of Care Code 96162 IN/OBS DISCH 30 MIN/LESS
--- NOTE | 2023-03-09 16:28 | Billing Data ---
Date of Service March 09, 2023 Coding Level of Care Code 81565 IN/OBS DISCH 30 MIN/LESS
[2023-03-11 20:53] LABS: Babesia microti DNA Not Detected (Not Detected)
[2023-03-12 13:07] LABS: Ehrlichia chaff DNA Bld Negative (Negative)
== END 2023-03-09 13:31 | disposition home or self-care (01) ==
LOC: ED 09:47 → EDINP 09:47 → SUATTDRO 17:29 → 3E 19:47